=== PATIENT | male | born 1975 | race Two or more races ===

== ENCOUNTER 2017-05-16 18:05 | Emergency (ER) | payer MEDICAID ==
[~2017-05-16] VITALS: Ht 172.7 cm; Wt 108.9 kg
[2017-05-16 19:07] LABS: Basophils # (auto) 0 uL; Basophils % (auto) 0.3 % (0.0-2.0); Eosinophils # (auto) 0.1 uL; Eosinophils % (auto) 2.1 % (0.0-7.0); Hematocrit 47.2 % (41.0-53.0); Hemoglobin 16.1 g/dL (13.5-17.5); Lymphocytes # (auto) 2.5 uL; Lymphocytes % (auto) 36.2 % (10.0-50.0); Mean Corpuscular Hemoglobin 31.6 pg (28.0-32.0); Mean Corpuscular Volume 92.8 fL (80.0-100.0); Mean Platelet Volume 7.5 fL (6.9-10.8); Monocytes # (auto) 0.6 uL; Monocytes % (auto) 7.9 % (0.0-12.0); Neutrophils # (auto) 3.7 uL; Neutrophils % (auto) 53.5 % (37.0-80.0); Platelet Count (auto) 197 10^3/uL (140-450); Red Cell Distribution Width 13.2 % (11.8-14.3)
[2017-05-16 19:24] LABS: Albumin 3.9 g/dL (3.4-5.0); Alkaline Phosphatase 63 U/L (45-117); Anion Gap 10 (5-15); Aspartate Aminotransferase 44 U/L (15-37); BUN/Creatinine Ratio 13.8; Bilirubin, Total 0.7 mg/dL (0.2-1.0); Blood Urea Nitrogen 11 mg/dL (7-18); Calcium 8.6 mg/dL (8.5-10.1); Carbon Dioxide 22 mmol/L (21-32); Chloride 105 mmol/L (98-107); GFR African American 138 mL/min; GFR Non-African American 114 mL/min; Glucose 92 mg/dL (74-106); Potassium 3.7 mmol/L (3.5-5.1); Sodium 137 mmol/L (136-145); Total Protein 8.1 g/dL (6.4-8.2)
[2017-05-16 19:29] LABS: Acetaminophen < 2.0 ug/mL (10-30)
[2017-05-16 21:23] LABS: Urine Bilirubin Negative (Negative); Urine Blood Negative /uL (Negative); Urine Color Colorless (Yellow); Urine Glucose Normal (Normal); Urine Ketone Negative (Negative); Urine Mucus FEW (None Seen); Urine Nitrite Negative (Negative); Urine RBC <1 /hpf (0 - 3); Urine Urobilinogen Normal (Negative)
[2017-05-16] MEDS ORDERED: THIAMINE HCL 100 MG/ML 2ML VIAL IV ONE (22:15)
[2017-05-16] MEDS ORDERED: FOLIC ACID 1 MG in D5W 5% 50 ML IV ONE (22:15)
[2017-05-16] MEDS ORDERED: MVI in SODIUM CHLORIDE 0.9% 1,010 ML ONE (22:29)
[2017-05-16] MEDS ORDERED: HYDROcodone-ACET 10/325MG TAB PO ONE (23:15)
[2017-05-17] MEDS ORDERED: HYDROcodone-ACET 10/325MG TAB PO ONE (04:15)
[2017-05-17 05:31] VITALS: BP 137/85
[2017-05-17] MEDS ORDERED: THIAMINE INJ 100 MG, MULTIPLE VITAMIN 10 ML, FOLIC ACID 1 MG, MAGNESIUM SULF SDV 50% 8 ... IV SCH ×5 (12:00)
== END 2017-05-17 06:20 | disposition home or self-care (01) ==
LOC: ER 18:16
DX: F10.129 Alcohol abuse with intoxication, unspecified (principal); R41.82 Altered mental status, unspecified; G92 Toxic encephalopathy; M25.511 Pain in right shoulder; R51 Headache; R68.84 Jaw pain; F17.210 Nicotine dependence, cigarettes, uncomplicated; W19.XXXA Unspecified fall, initial encounter; Y93.89 Activity, other specified; Y99.8 Other external cause status; Y92.89 Other specified places as the place of occurrence of the external cause
CPT/HCPCS: 36415; 70450; 71010; 72125; 73030; 80053; 80307; 80320; 80329; 81001; 84484; 85025; 96374; 99285; J3411; J3475; J7060

== ENCOUNTER 2017-05-18 14:02 | Emergency (ER) | payer MEDICAID ==
[~2017-05-18] VITALS: Ht 170.2 cm; Wt 104.3 kg
[2017-05-18 14:29] VITALS: BP 140/90
[2017-05-18] MEDS ORDERED: HYDROcodone-ACET 10/325MG TAB PO ONE (14:45)
== END 2017-05-18 15:12 | disposition home or self-care (01) ==
LOC: ER 14:02
DX: S16.1XXA Strain of muscle, fascia and tendon at neck level, initial encounter (principal); S09.90XA Unspecified injury of head, initial encounter; F12.10 Cannabis abuse, uncomplicated; F17.210 Nicotine dependence, cigarettes, uncomplicated; X58.XXXA Exposure to other specified factors, initial encounter; Y93.89 Activity, other specified; Y99.8 Other external cause status; Y92.89 Other specified places as the place of occurrence of the external cause

== ENCOUNTER 2018-03-25 07:55 | Emergency (ER) | payer MEDICAID ==
[~2018-03-25] VITALS: Ht 170.2 cm; Wt 116.1 kg
[2018-03-25 08:03] VITALS: BP 117/71
[2018-03-25 08:34] LABS: Urine Bacteria FEW /hpf (None Seen); Urine Blood Negative /uL (Negative); Urine Specific Gravity 1.024 (1.001-1.035); Urine WBC <1 /hpf (0 - 3)
[2018-03-25 08:51] LABS: Alcohol, Urine < 3.0 mg/dL (0-5); Amphetamine Screen, Urine NEGATIVE (NEGATIVE); Barbiturate Scree,Urine NEGATIVE (NEGATIVE); Benzodiazephine Screen, Urine NEGATIVE (NEGATIVE); Cannabinoid Screen, Urine POSITIVE (NEGATIVE); Cocaine Screen, Urine NEGATIVE (NEGATIVE); Opiate Scree,Urine NEGATIVE (NEGATIVE); Phencyclidine Screen, Urine NEGATIVE (NEGATIVE)
[2018-03-25 09:20] LABS: Basophils # (auto) 0 uL; Basophils % (auto) 0.6 % (0.0-2.0); Eosinophils # (auto) 0 uL; Eosinophils % (auto) 1.1 % (0.0-7.0); Hemoglobin 15.7 g/dL (13.5-17.5); Lymphocytes # (auto) 1.5 uL; Lymphocytes % (auto) 38.9 % (10.0-50.0); Mean Corpuscular Hgb Conc. 34.1 g/dL (32.0-36.0); Mean Corpuscular Volume 90.9 fL (80.0-100.0); Monocytes # (auto) 0.3 uL; Neutrophils # (auto) 1.9 uL; Neutrophils % (auto) 50.4 % (37.0-80.0); Nucleated Red Blood Cells % 0.1 %; Platelet Count (auto) 224 10^3/uL (140-450); Red Blood Cells 5.06 10^6/uL (4.5-5.90); Red Cell Distribution Width 13.2 % (11.8-14.3); White Blood Cell 3.8 10^3/uL (4.4-10.8)
[2018-03-25 09:47] LABS: Albumin 3.7 g/dL (3.4-5.0); BUN/Creatinine Ratio 11.6; Calcium 8.2 mg/dL (8.5-10.1); Potassium 4.2 mmol/L (3.5-5.1)
[2018-03-25 09:50] LABS: Bilirubin, Total 1.2 mg/dL (0.2-1.0); Total Protein 7.7 g/dL (6.4-8.2)
== END 2018-03-25 10:04 | disposition home or self-care (01) ==
LOC: ER 07:55
DX: R41.9 Unspecified symptoms and signs involving cognitive functions and awareness (principal); F17.210 Nicotine dependence, cigarettes, uncomplicated; F12.10 Cannabis abuse, uncomplicated
CPT/HCPCS: 36415; 70450; 80053; 80307; 81001; 85025

== ENCOUNTER 2021-10-09 10:03 | Emergency (ER) | payer MEDICAID ==
[~2021-10-09] VITALS: Ht 170.2 cm; Wt 90.7 kg
[2021-10-09 10:52] LABS: Basophils # (auto) 0 10 ^3/uL (0-0.2); Basophils % (auto) 0.3 % (0.0-2.0); Eosinophils # (auto) 0 10 ^3/uL (0-0.8); Eosinophils % (auto) 0.2 % (0.0-7.0); Hematocrit 47.2 % (41.0-53.0); Hemoglobin 16.1 g/dL (13.5-17.5); Lymphocytes # (auto) 1.1 10 ^3/uL (0.4-5.4); Mean Corpuscular Hemoglobin 30.5 pg (28.0-32.0); Mean Corpuscular Volume 89.8 fL (80.0-100.0); Monocytes # (auto) 0.5 10 ^3/uL (0-1.3); Neutrophils # (auto) 5.6 10 ^3/uL (1.6-8.6); Neutrophils % (auto) 77.5 % (37.0-80.0); Nucleated Red Blood Cells % 0.1 %; Red Blood Cells 5.26 10^6/uL (4.5-5.90); Red Cell Distribution Width 13.4 % (11.8-14.3); White Blood Cell 7.2 10^3/uL (4.4-10.8)
[2021-10-09 10:58] LABS: Urine Bacteria FEW /hpf (None Seen); Urine Blood Negative /uL (Negative); Urine Hyaline Cast FEW /lpf (0 - 2); Urine Mucus FEW (None Seen); Urine Specific Gravity 1.025 (1.001-1.035); Urine WBC <1 /hpf (0 - 3)
[2021-10-09 11:28] LABS: Alcohol, Urine < 3.0 mg/dL (0-10); Amphetamine Screen, Urine NEGATIVE (NEGATIVE); Barbiturate Scree,Urine NEGATIVE (NEGATIVE); Benzodiazephine Screen, Urine NEGATIVE (NEGATIVE); Cannabinoid Screen, Urine POSITIVE (NEGATIVE); Cocaine Screen, Urine NEGATIVE (NEGATIVE); Phencyclidine Screen, Urine NEGATIVE (NEGATIVE)
[2021-10-09 11:29] LABS: Albumin 3.7 g/dL (3.4-5.0); BUN/Creatinine Ratio 18.5; Calcium 9.1 mg/dL (8.5-10.1); Potassium 4.2 mmol/L (3.5-5.1)
[2021-10-09 11:32] LABS: Total Protein 7.6 g/dL (6.4-8.2)
[2021-10-09 11:36] LABS: Opiate Scree,Urine NEGATIVE (NEGATIVE)
[2021-10-09 11:40] VITALS: BP 130/78
== END 2021-10-09 11:41 | disposition home or self-care (01) ==
LOC: ER 10:03
DX: F17.210 Nicotine dependence, cigarettes, uncomplicated (principal); F12.10 Cannabis abuse, uncomplicated; M62.838 Other muscle spasm
CPT/HCPCS: 36415; 70450; 80053; 80307; 81001; 85025

== ENCOUNTER 2022-05-14 00:56 | Emergency (ER) | payer MEDICAID | END 2022-05-14 01:39 | disposition left against medical advice (07) | LOC: ER 00:57 | DX: M25.522 Pain in left elbow (principal); Z53.21 Procedure and treatment not carried out due to patient leaving prior to being seen by health care provider ==

== ENCOUNTER 2022-09-01 22:08 | Emergency (ER) | payer MEDICAID ==
[~2022-09-01] VITALS: Ht 170.2 cm; Wt 100.0 kg
[2022-09-01 23:43] LABS: Basophils # (auto) 0 10 ^3/uL (0-0.2); Basophils % (auto) 0.5 % (0.0-2.0); Eosinophils # (auto) 0.1 10 ^3/uL (0-0.8); Eosinophils % (auto) 2.3 % (0.0-7.0); Hematocrit 42.5 % (41.0-53.0); Hemoglobin 14.1 g/dL (13.5-17.5); Lymphocytes # (auto) 1.7 10 ^3/uL (0.4-5.4); Mean Corpuscular Hemoglobin 30.6 pg (28.0-32.0); Mean Corpuscular Hgb Conc. 33.3 g/dL (32.0-36.0); Mean Corpuscular Volume 92.2 fL (80.0-100.0); Monocytes # (auto) 0.6 10 ^3/uL (0-1.3); Monocytes % (auto) 12.2 % (0.0-12.0); Neutrophils # (auto) 2.5 10 ^3/uL (1.6-8.6); Nucleated Red Blood Cells % 0.1 %; Red Blood Cells 4.61 10^6/uL (4.5-5.90); Red Cell Distribution Width 13.2 % (11.8-14.3); White Blood Cell 4.9 10^3/uL (4.4-10.8)
[2022-09-01 23:56] LABS: Albumin 3.8 g/dL (3.4-5.0); Calcium 8.9 mg/dL (8.5-10.1); Potassium 4.2 mmol/L (3.5-5.1)
[2022-09-01 23:58] LABS: BUN/Creatinine Ratio 19.2
[2022-09-02] LABS: Bilirubin, Total 0.3 mg/dL (0.2-1.0); Total Protein 6.8 g/dL (6.4-8.2)
[2022-09-02 02:45] LABS: Urine Bacteria NONE SEEN /hpf (None Seen); Urine Blood Negative /uL (Negative); Urine Mucus FEW (None Seen); Urine Specific Gravity 1.032 (1.001-1.035); Urine WBC 2 /hpf (0 - 3)
[2022-09-02 04:32] VITALS: BP 136/72
== END 2022-09-02 04:35 | disposition home or self-care (01) ==
LOC: ER 22:11
DX: R55 Syncope and collapse (principal); F41.9 Anxiety disorder, unspecified; F17.210 Nicotine dependence, cigarettes, uncomplicated; F12.90 Cannabis use, unspecified, uncomplicated
CPT/HCPCS: 36415; 70450; 71045; 73030; 80053; 81001; 84484; 85025; 99285; J1953; J7060